=== PATIENT | female | born 1940 | race Caucasian/White ===

== ENCOUNTER 2016-07-05 11:43 | Emergency (ER) | payer MEDICARE, BC ==
[2016-07-05 11:59] VITALS: BP 141/69
--- NOTE | 2016-07-05 12:39 | EDM.PDOC ---
ED HPI RENAL/ - General Chief Complaint: Genitourinary Problem Stated Complaint: UTI Time Seen by Provider: 07/05/16 12:37 Source of Information: Reports: Patient History Limitations: Reports: No limitations - History of Present Illness INITIAL COMMENTS - FREE TEXT/NARRATIVE: Pt states that she has been having urinary frequency and burning x 1 week Symptom Onset Date: 06/27/16 Timing/Duration: Reports: Constant Location: Reports: generalized Quality: Reports: burning Severity: moderate Worsens with: Reports: urinating Associated Symptoms: Reports: no other symptoms - Related Data Allergies/ADRs: Allergies Allergy/AdvReac Type Severity Reaction Status Date / Time codeine Allergy Mild Rash Verified 07/05/16 12:00 doxycycline Allergy Mild Fever Verified 07/05/16 12:00 Home Meds: Home Meds Aspirin [Halfprin] 81 mg PO DAILY 05/28/13 [History] Hydrochlorothiazide 25 mg PO DAILY 05/28/13 [History] Lisinopril 40 mg PO DAILY 05/28/13 [History] Omeprazole 20 mg PO DAILY 05/28/13 [History] Tolterodine [Detrol LA 24 Hr] 2 mg PO DAILY 05/28/13 [History] Fenofibrate [Lipofen] 135 mg PO DAILY 06/15/13 [History] Psyllium Husk [Metamucil] 1 tab PO DAILY 07/05/16 [History] Past Medical History - Past Health History Medical/Surgical History: Denies Medical/Surgical History HEENT History: Reports: Impaired vision Other HEENT History: wears glasses Cardiovascular History: Reports: Hypertension Respiratory History: Reports: None Gastrointestinal History: Reports: GERD Other Genitourinary History: yeast infections Other OB/BYN History: yeast infections; tubal ligation bilateral Musculoskeletal History: Reports: None Neurological History: Reports: None Psychiatric History: Reports: None Endocrine/Metabolic History: Reports: None Hematologic History: Reports: None Immunologic History: Reports: None Oncologic (Cancer) History: Reports: None Dermatologic History: Reports: None - Infectious Disease History Infectious Disease History: Reports: Chicken pox, Measles, Mumps - Past Surgical History Head Surgeries/Procedures: Reports: None GI Surgical History: Reports: Cholecystectomy Social & Family History - Tobacco Use Smoking Status *Q: Never Smoker Second Hand Smoke Exposure: No - Caffeine Use Caffeine Use: Reports: Coffee, Tea - Alcohol Use Days Per Week of Alcohol Use: 0 - Recreational Drug Use Recreational Drug Use: No - Living Situation & Occupation Living situation: Reports: , with family Occupation: employed ED ROS GENERAL - Review of Systems Review Of Systems: See Below : Reports: frequency, urgency ED EXAM, RENAL/ - Physical Exam Exam: See Below Exam Limited By: No limitations General Appearance: alert, WD/WN, no apparent distress Respiratory/Chest: no respiratory distress, lungs clear, normal breath sounds, no accessory muscle use, chest non-tender Cardiovascular: normal peripheral pulses, regular rate, rhythm, no edema, no gallop, no JVD, no murmur, no rub GI/Abdominal: normal bowel sounds, soft, non tender, no organomegaly, no distention, no abnormal bruit, no mass Course - Vital Signs Last Recorded V/S: Last Vital Signs Temp 96.4 F 07/05/16 11:49 Pulse 71 07/05/16 11:49 Resp 16 07/05/16 11:49 BP 141/69 H 07/05/16 11:49 Pulse Ox 96 07/05/16 11:49 - Orders/Labs/Meds Labs: Laboratory Tests 07/05/16 Range/Units 11:47 Urine Color Yellow (YELLOW) Urine Appearance Slightly cloudy (CLEAR) Urine pH 5.5 (5.0-9.0) Ur Specific Cranks 1.010 (1.005-1.030) Urine Protein Negative (NEGATIVE) Urine Glucose (UA) Negative (NEGATIVE) Urine Ketones Negative (NEGATIVE) Urine Occult Blood Small H (NEGATIVE) Urine Nitrite Negative (NEGATIVE) Urine Bilirubin Negative (NEGATIVE) Urine Urobilinogen 0.2 (0.2-1.0) mg/dL Ur Leukocyte Esterase Moderate H (NEGATIVE) Urine RBC 5-10 H /HPF Urine WBC 50-75 H (0-5/HPF) /HPF Ur Epithelial Cells Few /HPF Urine Bacteria Few (0-FEW/HPF) /HPF Urine Mucus Few H /LPF Meds: Medications Discontinued Medications Generic Name Dose Route Start Last Admin Trade Name Freq PRN Reason Stop Dose Admin Phenazopyridine HCl 190 mg 07/05/16 12:55 Urinary Pain Relief PO 07/05/16 12:56 ONETIME ONE Departure - Departure Time of Disposition: 13:05 Disposition: Home, Self-Care 01 Condition: good Clinical Impression: UTI, Urinary tract infectious disease Instructions: Urinary Tract Infection, Adult, [id number] Forms: ED Department Discharge Additional Instructions: Take the pyridium for 2 days as prescribed. I placed you on macrobid because it has less risk of interaction with your medications. Drink plenty of fluids and try not to hold urination if possible.
[2016-07-05] MEDS ORDERED: Phenazopyridine 95 MG Tab PO ONE (12:55)
== END 2016-07-05 13:17 | disposition home or self-care (01) ==
LOC: DL.ED 11:43
DX: N39.0 Urinary tract infection, site not specified (principal); I10 Essential (primary) hypertension; K21.9 Gastro-esophageal reflux disease without esophagitis; Z98.51 Tubal ligation status; Z90.49 Acquired absence of other specified parts of digestive tract; Z79.899 Other long term (current) drug therapy; Z79.82 Long term (current) use of aspirin; Z88.5 Allergy status to narcotic agent; Z88.8 Allergy status to other drugs, medicaments and biological substances
CPT/HCPCS: 81001; 99284; A9270; 99283

== ENCOUNTER 2016-10-25 11:45 | Emergency (ER) | payer MEDICARE, BC ==
--- NOTE | 2016-10-25 12:14 | EDM.PDOC ---
ED HPI GENERAL MEDICAL PROBLEM - General Chief Complaint: Headache Stated Complaint: BAD HEADACHE Time Seen by Provider: 10/25/16 12:10 Source of Information: Reports: Patient History Limitations: Reports: No Limitations - History of Present Illness INITIAL COMMENTS - FREE TEXT/NARRATIVE: 76 yo female who presents with headache x 10 days but has changed and increased in intensity the past 3 days. Was seen at her PCP and thought to have a sinusitis or strep and was started on an antibiotic, no change in headache however sore throat has subsided some. States that she was biten by a wood tick 10 days ago as well. C/o nausea and one episode of vomiting 2 days ago. No other complaints. Onset Date: 10/16/16 Duration: Constant Location: Reports: Head Quality: Reports: Ache, Pressure Severity: Severe Improves with: Reports: None Worsens with: Reports: None Associated Symptoms: Reports: Nausea/Vomiting, Weakness - Related Data Allergies Allergy/AdvReac Type Severity Reaction Status Date / Time codeine Allergy Mild Rash Verified 07/05/16 12:00 doxycycline Allergy Mild Fever Verified 07/05/16 12:00 Home Meds: Home Meds Aspirin [Halfprin] 81 mg PO DAILY 05/28/13 [History] Hydrochlorothiazide 25 mg PO DAILY 05/28/13 [History] Lisinopril 40 mg PO DAILY 05/28/13 [History] Omeprazole 20 mg PO DAILY 05/28/13 [History] Tolterodine [Detrol LA 24 Hr] 2 mg PO DAILY 05/28/13 [History] Fenofibrate [Lipofen] 135 mg PO DAILY 06/15/13 [History] Psyllium Husk [Metamucil] 1 tab PO DAILY 07/05/16 [History] Past Medical History - Past Health History Medical/Surgical History: Denies Medical/Surgical History HEENT History: Reports: Impaired Vision Other HEENT History: wears glasses Cardiovascular History: Reports: Hypertension Respiratory History: Reports: None Gastrointestinal History: Reports: GERD Genitourinary History: Reports: Other (See Below) Other Genitourinary History: yeast infections [employer] History: Reports: Other (See Below) Other OB/BYN History: yeast infections; tubal ligation bilateral Musculoskeletal History: Reports: None Neurological History: Reports: None Psychiatric History: Reports: None Endocrine/Metabolic History: Reports: None Hematologic History: Reports: None Immunologic History: Reports: None Oncologic (Cancer) History: Reports: None Dermatologic History: Reports: None - Infectious Disease History Infectious Disease History: Reports: Chicken Pox, Measles, Mumps - Past Surgical History Head Surgeries/Procedures: Reports: None GI Surgical History: Reports: Cholecystectomy Social & Family History - Tobacco Use Smoking Status *Q: Never Smoker Second Hand Smoke Exposure: No - Caffeine Use Caffeine Use: Reports: Coffee - Alcohol Use Days Per Week of Alcohol Use: 0 - Recreational Drug Use Recreational Drug Use: No - Living Situation & Occupation Living situation: Reports: , with Family Occupation: Employed ED ROS GENERAL - Review of Systems Review Of Systems: See Below Constitutional: Reports: Malaise HEENT: Reports: Ear Pain Skin: Reports: Erythema, Lesions Neurological: Reports: Headache - Physical Exam Exam: See Below Exam Limited By: No Limitations General Appearance: Alert, WD/WN, No Apparent Distress Eye Exam: Bilateral Eye: PERRL Ears: Normal External Exam, Hearing Grossly Normal, Other (Mild effusion Bilaterally TM) Nose: Normal Inspection, Normal Mucosa, No Blood Throat/Mouth: Inflammation (white spot to orapharynx on right above tonsil ) Head Exam: Atraumatic, Normocephalic Neck: Normal Inspection, Supple, Full Range of Motion, Lymphadenopathy (L) Respiratory/Chest: No Respiratory Distress, Lungs Clear, Normal Breath Sounds, No Accessory Muscle Use, Chest Non-Tender Cardiovascular: Normal Peripheral Pulses, Regular Rate, Rhythm, No Edema, No Gallop, No JVD, No Murmur, No Rub Neuro Exam (Abbreviated): Alert, Oriented, CN II-XII Intact, Normal Cognition, Normal Gait, No Motor/Sensory Deficits Skin Exam: Warm, Dry, Intact, Normal Color, No Rash, Erythema, Other (macular lesion LLQ with erythamatous base, no central clearing noted. Blanchable. ) Course - Vital Signs Last Recorded V/S: Last Vital Signs Temp 97.5 F 10/25/16 13:20 Pulse 60 10/25/16 13:20 Resp 18 10/25/16 13:20 BP 155/68 H 10/25/16 13:20 Pulse Ox 97 10/25/16 13:20 - Orders/Labs/Meds Orders: Active Orders 24 hr Category Date Time Status Head wo Cont [CT] Urgent Exams 10/25/16 12:25 Taken CULTURE STREP A CONFIRMATION [RM] Stat Lab 10/25/16 12:33 Results LYME/B.BURGDORFERI IGG/IGM [REF] Stat Lab 10/25/16 12:15 Received STREP SCRN A RAPID W CULT CONF [RM] Stat Lab 10/25/16 12:33 Results Sodium Chloride 0.9% [Normal Saline] 500 ml Med 10/25/16 12:30 Active IV .BOLUS Sodium Chloride 0.9% [Saline Flush] Med 10/25/16 12:25 Active 10 ml FLUSH ASDIRECTED PRN Saline Lock Insert [OM.PC] Stat Oth 10/25/16 12:19 Ordered Medication Orders Sodium Chloride (Normal Saline) 500 mls @ 999 mls/hr IV .BOLUS LESLEY Last Admin: 10/25/16 12:35 Dose: 999 mls/hr Sodium Chloride (Saline Flush) 10 ml FLUSH ASDIRECTED PRN PRN Reason: Keep Vein Open Labs: Laboratory Tests 10/25/16 10/25/16 10/25/16 Range/Units 12:15 12:15 12:15 WBC 9.4 (5.0-10.0) 10^3/uL RBC 3.85 L (4.2-5.4) 10^6/uL Hgb 12.2 (12.0-16.0) g/dL Hct 37.0 (37.0-47.0) % MCV 96.1 (80-100) fL MCH 31.7 (27.0-34.0) pg MCHC 33.0 (33.0-35.0) g/dL Plt Count 246 (150-450) 10^3/uL Neut % (Auto) 67.4 (42.2-75.2) % Lymph % (Auto) 21.4 (20.5-50.1) % [place] % (Auto) 9.0 H (2-8) % Eos % (Auto) 2.0 (1.0-3.0) % Baso % (Auto) 0.2 (0.0-1.0) % ESR 79 H (0-20) mm/hr Sodium 141 (135-145) mmol/L Potassium 3.6 (3.6-5.0) mmol/L Chloride 104 (101-111) mmol/L Carbon Dioxide 25.0 (21.0-31.0) mmol/L Anion Gap 15.6 BUN 16 (7-18) mg/dL Creatinine 0.7 (0.6-1.3) mg/dL Est Cr Clr Drug Dosing TNP Estimated GFR (MDRD) > 60 BUN/Creatinine Ratio 22.85 Glucose 102 (74-105) mg/dL Calcium 9.6 (8.4-10.2) mg/dl Total Bilirubin 0.4 (0.2-1.0) mg/dL AST 20 (10-42) IU/L ALT 17 (10-60) IU/L Alkaline Phosphatase 66 (42-121) IU/L Total Protein 8.0 (6.7-8.2) g/dl Albumin 4.0 (3.2-5.5) g/dl Globulin 4.0 Albumin/Globulin Ratio 1.00 Meds: Medications Generic Name Dose Route Start Last Admin Trade Name Freq PRN Reason Stop Dose Admin Sodium Chloride 500 mls @ 999 mls/hr 10/25/16 12:30 10/25/16 12:35 Normal Saline IV 999 mls/hr .BOLUS LESLEY Administration Sodium Chloride 10 ml 10/25/16 12:25 Saline Flush FLUSH ASDIRECTED PRN Keep Vein Open Discontinued Medications Generic Name Dose Route Start Last Admin Trade Name Freq PRN Reason Stop Dose Admin Dexamethasone 4 mg 10/25/16 12:25 10/25/16 12:38 Dexamethasone IVPUSH 10/25/16 12:26 4 mg ONETIME ONE Administration Ketorolac Tromethamine 30 mg 10/25/16 12:25 10/25/16 12:41 Toradol IVPUSH 10/25/16 12:26 30 mg ONETIME ONE Administration Metoclopramide HCl 10 mg 10/25/16 12:25 10/25/16 12:36 Reglan IVPUSH 10/25/16 12:26 10 mg ONETIME ONE Administration - Re-Assessments/Exams Free Text/Narrative Re-Assessment/Exam: 10/25/16 14:16 headache better, will dc home with diagnosis of possible lyme disease treatment. pt on augmentin currently x 10 days. Will draw lyme titer and wait for results. if positive then will extend treatment with amoxicillin for 2 additional weeks. will dc home with motrin and medrol dose pack for headache 10/25/16 14:20 10/25/16 14:24 Departure - Departure Time of Disposition: 14:30 Disposition: DC[facility] 05 Condition: Good Clinical Impression: Headache Qualifiers: Headache type: unspecified Headache chronicity pattern: acute headache Intractability: not intractable Qualified Code(s): R51 - Headache - Discharge Information Forms: ED Department Discharge Additional Instructions: Continue to take your augmentin( antibiotic) until complete, Call the end of next week to get results of Lyme test. Take the motrin as needed for pain three times a day, take the steriod daily until gone. Follwoup with your PCP. Return for any worsening symptoms. - My Orders Last 24 Hours: My Active Orders 10/25/16 12:15 LYME/B.BURGDORFERI IGG/IGM [REF] Stat 10/25/16 12:19 Saline Lock Insert [OM.PC] Stat 10/25/16 12:25 Head wo Cont [CT] Urgent Sodium Chloride 0.9% [Saline Flush] 10 ml FLUSH ASDIRECTED PRN 10/25/16 12:30 Sodium Chloride 0.9% [Normal Saline] 500 ml IV .BOLUS 10/25/16 12:33 CULTURE STREP A CONFIRMATION [RM] Stat STREP SCRN A RAPID W CULT CONF [RM] Stat - Assessment/Plan Last 24 Hours: My Active Orders 10/25/16 12:15 LYME/B.BURGDORFERI IGG/IGM [REF] Stat 10/25/16 12:19 Saline Lock Insert [OM.PC] Stat 10/25/16 12:25 Head wo Cont [CT] Urgent Sodium Chloride 0.9% [Saline Flush] 10 ml FLUSH ASDIRECTED PRN 10/25/16 12:30 Sodium Chloride 0.9% [Normal Saline] 500 ml IV .BOLUS 10/25/16 12:33 CULTURE STREP A CONFIRMATION [RM] Stat STREP SCRN A RAPID W CULT CONF [RM] Stat
[2016-10-25] MEDS ORDERED: Metoclopramide 10 MG/2 ML SDV IVPUSH ONE (12:25)
[2016-10-25] MEDS ORDERED: Ketorolac 30 MG/ML SDV IVPUSH ONE (12:25)
[2016-10-25] MEDS ORDERED: Dexamethasone 4 MG/ML SDV IVPUSH ONE (12:25)
[2016-10-25] MEDS ORDERED: Sodium Chloride 0.9% 10 ML Syringe FLUSH PRN (12:25)
[2016-10-25] MEDS ORDERED: Sodium Chloride 0.9% 500 ML IV SCH (12:30)
[2016-10-25 12:50] LABS: CHLORIDE,CL 104 mmol/L (101-111); SODIUM,NA 141 mmol/L (135-145)
[2016-10-25 13:21] VITALS: BP 155/68
== END 2016-10-25 15:18 | disposition designated cancer center or children's hospital (05) ==
LOC: DL.ED 11:45
DX: R51 Headache (principal); K21.9 Gastro-esophageal reflux disease without esophagitis; I10 Essential (primary) hypertension; H54.7 Unspecified visual loss; Z98.51 Tubal ligation status; Z79.899 Other long term (current) drug therapy; Z88.5 Allergy status to narcotic agent; Z79.82 Long term (current) use of aspirin; Z88.1 Allergy status to other antibiotic agents; Z90.49 Acquired absence of other specified parts of digestive tract
CPT/HCPCS: 36415; 70450; 80053; 85025; 85651; 86618; 87081; 87430; 96361; 96374; 96375; 99284; J1100; J1885; J2765; J7040

== ENCOUNTER 2016-12-23 07:01 | Day surgery (SDC) | payer MEDICARE, BC ==
[~2016-12-23 07:01] MED LIST: Midazolam 1 MG/ML 2 ML SDV ONE; fentaNYL 100 MCG/2 ML SDV ONE
[2016-12-23] MEDS ORDERED: fentaNYL 100 MCG/2 ML SDV IV ONE ×3 (07:02→09:08)
[2016-12-23] MEDS ORDERED: Midazolam 1 MG/ML 2 ML SDV IV ONE ×3 (07:02→09:10)
[2016-12-23] MEDS ORDERED: Lactated Ringers 1,000 ML IV SCH (08:30)
[2016-12-23 11:27] VITALS: BP 159/63
--- NOTE | 2016-12-23 14:05 | OR ---
DATE: 12/23/2016 PREOPERATIVE DIAGNOSES: Prior colon polyps and constipation. POSTOPERATIVE DIAGNOSES: Prior colon polyps and constipation. PROCEDURE: Total colonoscopy. ANESTHESIA: Conscious sedation with IV Versed and fentanyl. SPECIMEN: None. OPERATIVE FINDINGS: A small right colon submucosal lipoma which is of no consequence, and moderate sigmoid diverticulosis which possibly could explain increased constipation. No polyps, bleeding sites, or evidence of colitis was noted. Rectal examination is normal. INDICATION FOR PROCEDURE: This 76-year-old female referred by Samantha Loza, Medical Practitioner for evaluation of chronic constipation. She had a prior colonoscopy by verbal report with the patient with polyp removal. DESCRIPTION OF PROCEDURE: After adequate preparation, a colonoscope was inserted into the rectum, this was easily passed all the way to the cecum. Confirmation of the cecum is made by visualization of the ileocecal valve on palpation in the right lower quadrant. The photographs of the ileocecal bowel was taken. On withdrawal of the scope, the bowel prep was very good. In the right colon, near the hepatic flexure, there was a submucosal lipoma of about 3 mm in diameter. This also is of no consequence. The remaining examination of the colon was normal except for sigmoid diverticulosis. Otherwise, there are no mass or recurrent polyps. Air was suctioned from the colon and the scope was removed. [facility] /[id number]
== END 2016-12-23 11:25 | disposition home or self-care (01) ==
LOC: DL.ENDO 07:01
PROVIDERS: ATTEND Surgery
DX: D17.79 Benign lipomatous neoplasm of other sites (principal); K57.30 Diverticulosis of large intestine without perforation or abscess without bleeding; K59.09 Other constipation; Z86.010 Personal history of colon polyps
CPT/HCPCS: 45378; J2250; J3010; J7120

== ENCOUNTER 2018-01-17 11:36 | Emergency (ER) | payer MEDICARE, BC ==
[2018-01-17] MEDS ORDERED: Sodium Chloride 0.9% 10 ML Syringe FLUSH PRN (12:37)
[2018-01-17] MEDS ORDERED: Ondansetron 4 MG/2 ML SDV IV ONE (12:40)
[2018-01-17 13:09] LABS: ANION GAP 12.9; CHLORIDE,CL 100 mmol/L (101-111); SODIUM,NA 137 mmol/L (135-145)
--- NOTE | 2018-01-17 13:53 | CR ---
Clinical history: 78-year-old female complaining of chest pain. Interpretation: No acute new cardiopulmonary abnormality (changes are only in technique i.e. AP versu s PA projections and rotation when compared to May 2011 chest radiograph). Normal cardiac silhouette without cephalization of vascular flow, signs of alveolar edema or dependen t pleural fluid accumulation. No new lung mass, hilar lymphadenopathy or focal lobar pneumonia. No atelectasis/collapse. No pneumothorax or free subdiaphragmatic air.
--- NOTE | 2018-01-17 14:11 | US ---
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 Rule out deep vein thrombosis (DVT) this postop patient. Interpretation: Negative exam. No sign of intraluminal echogenic thrombus and normal compressibility deep veins of the left groin, t high, and knee with satisfactory augmentation of the venous waveforms respectively in the posterior t ibial vein upper left calf, popliteal vein behind the knee, and femoral veins proximally in the left lower extremity. No Malhotra's cysts or popliteal artery aneurysm.
[2018-01-17 14:17] VITALS: BP 141/69
--- NOTE | 2018-01-17 14:20 | EDM.PDOC ---
Scribed by Krys Jamison 01/17/18 9120 for Ruddy Bazzi MD ED HPI GENERAL MEDICAL PROBLEM - General Chief Complaint: General Stated Complaint: AMBULANCE Time Seen by Provider: 01/17/18 11:49 Source of Information: Reports: Patient, EMS, EMS Notes Reviewed, RN, RN Notes Reviewed History Limitations: Reports: No Limitations - History of Present Illness INITIAL COMMENTS - FREE TEXT/NARRATIVE: Patient presents to ER by [facility] with complaint of dry heaves, left lower leg pain and swelling, chest pain, headache and anxiety. Patient is S/P left THR pn 01/04/18. She states that she has done well following hip surgery. she has been independent at home without assistance and has not required any medication. This morning she awoke with dry heaves. She later tried to sip water and had small emesis of approximately 40cc of clear fluid. She denies any fever or chills. She later developed a headache and chest pain. The chest pain spontaneously resolved prior to arrival. She thinks she may have become anxious earlier. She called her orthopedic surgeon and was instructed to come to the ER for ultrasound to rule out DVT. Onset: Today Duration: Getting Worse Location: Reports: Generalized Severity: Moderate Improves with: Reports: None Worsens with: Reports: None Associated Symptoms: Reports: No Other Symptoms Left Leg Pain Score (Numeric/FACES): 0 - Related Data Allergies Allergy/AdvReac Type Severity Reaction Status Date / Time codeine Allergy Mild Rash Unverified 01/17/18 12:41 doxycycline Allergy Mild Fever Unverified 01/17/18 12:41 Home Meds: Home Meds Aspirin [Halfprin] 81 mg PO BID 05/28/13 [History] Lisinopril 40 mg PO DAILY 05/28/13 [History] Omeprazole 20 mg PO DAILY 05/28/13 [History] Tolterodine [Detrol LA 24 Hr] 2 mg PO DAILY 05/28/13 [History] Fenofibrate [Lipofen] 135 mg PO DAILY 06/15/13 [History] Psyllium Husk [Metamucil] 1 tab PO DAILY 07/05/16 [History] Cranberry 1 tab PO DAILY 12/22/16 [History] Ibuprofen [Ibu] 600 mg PO ASDIRECTED PRN 01/17/18 [History] Past Medical History - Past Health History Medical/Surgical History: Denies Medical/Surgical History HEENT History: Reports: Cataract, Impaired Vision, Other (See Below) Other HEENT History: wears glasses. FULL TOP DENTURE. PARTIAL BOTTOM DENTURE Cardiovascular History: Reports: High Cholesterol, Hypertension Respiratory History: Reports: None Gastrointestinal History: Reports: Diverticulosis, GERD, Hiatal Hernia, Other ( See Below) Other Gastrointestinal History: S/P DIVERTICULITIS Genitourinary History: Reports: Other (See Below) Other Genitourinary History: yeast infections. HX OF OVERACTIVE BLADDER INVESTIGATION MANAGER History: Reports: , Other (See Below) Other INVESTIGATION MANAGER History: yeast infections; tubal ligation bilateral Musculoskeletal History: Reports: None, Other (See Below) Other Musculoskeletal History: HX OF OSTEOARTHRITIS IN LEFT HIP, PATIENT NOTES THAT SHE RECEIVES INJECTIONS Neurological History: Reports: Other (See Below) Other Neuro History: NEURALGIA Psychiatric History: Reports: None Endocrine/Metabolic History: Reports: None Hematologic History: Reports: None Immunologic History: Reports: None Oncologic (Cancer) History: Reports: None Dermatologic History: Reports: None - Infectious Disease History Infectious Disease History: Reports: Chicken Pox, Measles, Mumps - Past Surgical History GI Surgical History: Reports: Appendectomy, Cholecystectomy, Colonoscopy, EGD Social & Family History - Family History Cardiac: Reports: CAD, Congenital Septal Defect, Hypertension, [place] Musculoskeletal: Reports: Back pain, Chronic Other Psychiatric Family History: ADDICTION Endocrine/Metabolic: Reports: Diabetes, type II Oncologic: Reports: Breast, Colon, Lung - Caffeine Use Caffeine Use: Reports: Coffee Other Caffeine Use: 2 CUPS OF COFFEE DAILY - Living Situation & Occupation Living situation: Reports: , with Family Occupation: Employed ED ROS GENERAL - Review of Systems Review Of Systems: ROS reveals no pertinent complaints other than HPI. ED EXAM,LOWER BACK PAIN/INJURY - Physical Exam Exam: See Below Exam Limited By: No Limitations General Appearance: Alert, WD/WN, No Apparent Distress Eye Exam: Bilateral Eye: Normal Inspection Nose: Normal Inspection, Normal Mucosa, No Blood Throat/Mouth: Normal Inspection, Normal Lips, Normal Teeth, Normal Gums, Normal Oropharynx, Normal Voice, No Airway Compromise Head: Atraumatic, Normocephalic Neck: Normal Inspection, Supple, Non-Tender, Full Range of Motion Respiratory/Chest: No Respiratory Distress, Lungs Clear, Normal Breath Sounds, No Accessory Muscle Use, Chest Non-Tender Cardiovascular: Normal Peripheral Pulses, Regular Rate, Rhythm, No Edema, No Gallop, No JVD, No Murmur, No Rub GI/Abdominal: Normal Bowel Sounds, Soft, Non-Tender, No Distention, No Abnormal Bruit (Female) Exam: Deferred Rectal (Female) Exam: Deferred Back Exam: Normal Inspection Extremities: Normal Range of Motion, No Pedal Edema, Normal Capillary Refill, Leg Pain (to palpation at the left posterior lower leg with mild swelling. No erythema. ), Other (left hip incision well healed with no erythema with no evidence or signs of infection. ). No: Joint Swelling Neurological: Alert, Normal Mood/Affect, CN II-XII Intact, No Motor/Sensory Deficits, Oriented x 3 Psychiatric: Anxious Skin Exam: Warm, Dry, Intact, Normal Color, No Rash EKG INTERPRETATION EKG Date: 01/17/18 Time: 12:38 Rhythm: Other (sinus rhythm) Rate (Beats/Min): 68 Bailey: Normal P-Wave: Present QRS: Normal ST-T: Normal QT: Normal Comparison: NA - No Prior EKG Course - Vital Signs Last Recorded V/S: Last Vital Signs Temp 37.0 C 01/17/18 14:16 Pulse 71 01/17/18 14:16 Resp 20 01/17/18 14:16 BP 141/69 H 01/17/18 14:16 Pulse Ox 93 L 01/17/18 14:16 - Orders/Labs/Meds Orders: Active Orders 24 hr Category Date Time Status EKG 12 Lead [EKG Documentation Completion] [RC] STAT Care 01/17/18 12:37 Active Peripheral IV Care [RC] . DIRECTED Care 01/17/18 12:38 Active Sodium Chloride 0.9% [Saline Flush] Med 01/17/18 12:37 Active 10 ml FLUSH ASDIRECTED PRN Peripheral IV Insertion Adult [OM.PC] Stat Oth 01/17/18 12:37 Ordered Medication Orders Sodium Chloride (Saline Flush) 10 ml FLUSH ASDIRECTED PRN PRN Reason: Keep Vein Open Last Admin: 01/17/18 12:53 Dose: 10 ml Labs: Laboratory Tests 01/17/18 01/17/18 Range/Units 12:44 12:44 WBC 10.4 H (5.0-10.0) 10^3/uL RBC 3.51 L (4.2-5.4) 10^6/uL Hgb 10.8 L D (12.0-16.0) g/dL Hct 33.9 L (37.0-47.0) % MCV 96.6 (80-100) fL MCH 30.8 (27.0-34.0) pg MCHC 31.9 L (33.0-35.0) g/dL Plt Count 326 D (150-450) 10^3/uL Neut % (Auto) 80.5 H (42.2-75.2) % Lymph % (Auto) 13.4 L (20.5-50.1) % [place] % (Auto) 3.9 (2-8) % Eos % (Auto) 2.1 (1.0-3.0) % Baso % (Auto) 0.1 (0.0-1.0) % Sodium 137 (135-145) mmol/L Potassium 3.9 (3.6-5.0) mmol/L Chloride 100 L (101-111) mmol/L Carbon Dioxide 28.0 (21.0-31.0) mmol/L Anion Gap 12.9 BUN 19 H (7-18) mg/dL Creatinine 0.7 (0.6-1.3) mg/dL Est Cr Clr Drug Dosing 71.45 mL/min Estimated GFR (MDRD) > 60 BUN/Creatinine Ratio 27.14 Glucose 119 H (74-105) mg/dL Calcium 9.1 (8.4-10.2) mg/dl Total Bilirubin 0.5 (0.2-1.0) mg/dL AST 21 (10-42) IU/L ALT 16 (10-60) IU/L Alkaline Phosphatase 63 (42-121) IU/L Troponin I < 0.02 (0.00-0.02) ng/ml Total Protein 7.7 (6.7-8.2) g/dl Albumin 3.9 (3.2-5.5) g/dl Globulin 3.8 Albumin/Globulin Ratio 1.03 Amylase 31 (28-100) U/L Lipase 33 (22-51) U/L Meds: Medications Generic Name Dose Route Start Last Admin Trade Name Freq PRN Reason Stop Dose Admin Sodium Chloride 10 ml 01/17/18 12:37 01/17/18 12:53 Saline Flush FLUSH 10 ml ASDIRECTED PRN Administration Keep Vein Open Discontinued Medications Generic Name Dose Route Start Last Admin Trade Name Renu PRN Reason Stop Dose Admin Ondansetron HCl 4 mg 01/17/18 12:40 01/17/18 12:52 Zofran IV 01/17/18 12:41 4 mg ONETIME ONE Administration - Radiology Interpretation Free Text/Narrative:: Chest x-ray: No acute process per rad report. Venous Duplex ultrasound of left lower extremity: Negative exam. See rad report. Departure - Departure Time of Disposition: 14:18 Disposition: Home, Self-Care 01 Condition: Good Clinical Impression: Dry heaves, Edema of left lower extremity - Discharge Information *PRESCRIPTION DRUG MONITORING PROGRAM REVIEWED*: No *COPY OF PRESCRIPTION DRUG MONITORING REPORT IN PATIENT SULEMA: No Instructions: Peripheral Edema, Nausea and Vomiting, Adult, [id number] Referrals: PCP,Unobtain [Primary Care Provider] - Forms: ED Department Discharge Additional Instructions: Rx: Zofran 4mg Activity and diet as tolerated. Follow up in clinic if not improved in 1 to 2 days. - My Orders Last 24 Hours: My Active Orders 01/17/18 12:37 EKG 12 Lead [EKG Documentation Completion] [RC] STAT Sodium Chloride 0.9% [Saline Flush] 10 ml FLUSH ASDIRECTED PRN Peripheral IV Insertion Adult [OM.PC] Stat 01/17/18 12:38 Peripheral IV Care [RC] . DIRECTED - Assessment/Plan Last 24 Hours: My Active Orders 01/17/18 12:37 EKG 12 Lead [EKG Documentation Completion] [RC] STAT Sodium Chloride 0.9% [Saline Flush] 10 ml FLUSH ASDIRECTED PRN Peripheral IV Insertion Adult [OM.PC] Stat 01/17/18 12:38 Peripheral IV Care [RC] . DIRECTED I have read and agree with the documentation that has been completed regarding this visit. By signing this record, I attest that the documentation was completed in my physical presence and is an accurate record of the encounter.
== END 2018-01-17 14:35 | disposition home or self-care (01) ==
LOC: DL.ED 11:36
DX: R60.0 Localized edema (principal); R11.10 Vomiting, unspecified; Z88.5 Allergy status to narcotic agent; Z79.82 Long term (current) use of aspirin; Z79.899 Other long term (current) drug therapy
CPT/HCPCS: 36415; 71045; 80053; 82150; 83690; 84484; 85025; 93005; 93971; 96374; 99285; J2405; J7050